=== PATIENT | male | born 1935 | race Caucasian/White ===

== ENCOUNTER → 2016-12-29 | Day surgery (SDC) | payer MEDICARE, OTHER ==
[~2016-12-29] VITALS: Ht 180.3 cm; Wt 75.0 kg
[~2016-12-29] MED LIST: ALTACE10 MG PO; ALTACE2.5 MG PO; ASPIR 8181 MG PO; COLACE100 MG PO; DITROPAN XL15 MG PO; LEVOTHROID (S100 MCG PO; TOVIAZ8 MG PO; TRIMETHOPRIM100 MG PO; VESICARE10 MG PO
--- NOTE | ~2016-12-29 | OR ---
PATIENT'S NAME: STEVIE CARDENAS [facility] AGE: 81 Y [address] ROOM: [place] [address] [place] [facility] [place] DATE: 12/29/2016 OR/Procedure Report DISCHARGE DATE: FAMILY PHYSICIAN: Maggi Michaels MD ATTENDING PHYSICIAN: Roly Leon SURGEON: Roly Leon MD [employer] OPERATOR: DATE OF PROCEDURE: 12/29/2016 PREOPERATIVE DIAGNOSES: 1. Carcinoma of the prostate. 2. Urethral stricture. 3. Suprapubic catheter. POSTOPERATIVE DIAGNOSES: 1. Carcinoma of the prostate. 2. Urethral stricture. 3. Suprapubic catheter. OPERATION: Suprapubic catheter change. DESCRIPTION OF PROCEDURE: The patient was seen in the outpatient department. He was given IV sedation by the Anesthesia Department and then the suprapubic catheter was removed. A new 24-[place] silicone Rodriguez was inserted without difficulty. It irrigated easily and clearly and he remained in the outpatient department until he is recovered from the anesthesia sedation and then dismissed. ROLY LEON MD EKL/modl /[id number] d: 12/29/16 0704 t: 12/30/16 0454, OPERATIVE SUMMARY
--- NOTE | ~2016-12-29 | HP ---
PATIENT'S NAME: STEVIE CARDENAS [facility] AGE: 81 Y [address] ROOM: [place] [id number] LOCATION: [facility] ADMIT DATE: 12/29/2016 History & Physical DISCHARGE DATE: FAMILY PHYSICIAN: PHYSICIAN, UNKNOWN ATTENDING PHYSICIAN: Roly Leon DATE OF SERVICE: HISTORY OF PRESENT ILLNESS: This is a 81-year-old male, who was found to have adenocarcinoma of the prostate in 2004 and subsequently treated with radioactive seeds. He then developed complications from the radiation with the severe urethral stricture, which required frequent dilatations. His stricture became worse. He then had a laser vaporization of the prostate, but he continued to have voiding problems and recurrent stricture formation and became very difficult to dilate the stricture; therefore, suprapubic catheter was inserted. In 2008, a suprapubic catheter was placed. He had a lot of bladder spasms with his suprapubic catheter and is very difficult to change his catheter because of pain and discomfort. He becomes very combative and difficult to handle when his suprapubic catheters changed. Therefore, it has been changed under IV sedation every three months. He is seen now for suprapubic catheter change under IV sedation. PAST MEDICAL HISTORY: ILLNESSES: 1. Hypothyroidism. 2. Diabetes mellitus. 3. Adenocarcinoma of the prostate. OPERATIONS: 1. Appendectomy. 2. Inguinal herniorrhaphy. 3. Knee arthroscopy. 4. As above. ALLERGIES: LATEX. PHYSICAL EXAMINATION: PATIENT'S NAME: STEVIE CARDENAS [facility] AGE: 81 Y [address] ROOM: [place] [id number] LOCATION: [facility] ADMIT DATE: 12/29/2016 History & Physical DISCHARGE DATE: FAMILY PHYSICIAN: PHYSICIAN, UNKNOWN ATTENDING PHYSICIAN: Roly Leon GENERAL: A well-developed and well-nourished male. CHEST: Clear. HEART: Normal sinus rhythm. ABDOMEN: Soft with no palpable masses. Suprapubic catheter is in place. : Normal penis. Testicles are normal. Prostate is flat and benign. RECTAL: Negative. IMPRESSION: 1. Adenocarcinoma of the prostate. 2. Urethral stricture. 3. Suprapubic cystostomy. PLAN: As above. ROLY K MD VIOLETTE LEON/georges /[id number] D: [id number] T: [id number] HISTORY & PHYSICAL
[2016-12-29 06:18] LABS: BASOPHIL % 0.6 %; EOSINOPHIL # 0.1 K/uL (0.0-0.5); EOSINOPHIL % 2.4 %; HEMOGLOBIN 14.5 g/dL (11.0-16.0); IMMATURE GRANULOCYTE % 0.4 %; LYMPHOCYTE # 1.3 K/uL (0.8-4.0); LYMPHOCYTE % 24.8 %; MCH 30.6 pg (27.0-34.0); MCHC 33.7 gm/dL (32.0-36.5); MCV 90.7 fl (83.0-98.0); MONOCYTE # 0.6 K/uL (0.0-1.0); MONOCYTE % 11.1 %; MPV 10.1 fl (9.4-12.4); NEUTROPHIL # (ANC) 3.1 K/uL (1.4-9.0); NEUTROPHIL % 60.7 %; NRBC % 0 /100WBC (0-0.00); PLATELET COUNT 140 K/uL (150-450); RBC 4.74 M/uL (3.50-5.50); RDW-CV 12.2 % (11.9-14.6)
[2016-12-29 06:36] LABS: ALBUMIN 3.7 gm/dL (3.5-5.0); ANION GAP 10.2 (10.0-19.0); CALCIUM 8.6 mg/dL (8.5-10.5); CREATININE 1.2 mg/dL (0.6-1.3); POTASSIUM 4.2 mMol/L (3.7-5.1); TOTAL PROTEIN 6.9 g/dL (6.0-8.4)
== END | disposition disaster alternative care site (69) ==
LOC: GPOC 12-23 15:00 → GSDC 05:23 → GPOC 05:30
PROVIDERS: Urology
PROC: 0T2DX0Z Change Drainage Device in Urethra, External Approach (ICD-10-PCS; principal; 2016-12-29)
DX: Z46.6 Encounter for fitting and adjustment of urinary device (principal); C61 Malignant neoplasm of prostate; N35.9 Urethral stricture, unspecified; E03.9 Hypothyroidism, unspecified; E11.9 Type 2 diabetes mellitus without complications; Z90.49 Acquired absence of other specified parts of digestive tract; Z98.890 Other specified postprocedural states; Z91.040 Latex allergy status
CPT/HCPCS: J2001; J7030

== ENCOUNTER → 2017-04-13 | Day surgery (SDC) | payer MEDICARE, OTHER ==
[~2017-04-13] VITALS: Ht 177.8 cm; Wt 75.0 kg
--- NOTE | ~2017-04-13 | OR ---
PATIENT'S NAME: AALN CARDENAS [facility] AGE: 82 Y [address] ROOM: [place] [address] [place] [facility] [place]: 04/13/2017 OR/Procedure Report DISCHARGE DATE: FAMILY PHYSICIAN: Maggi Michaels MD ATTENDING PHYSICIAN: Roly Leon SURGEON: Roly Leon MD PATIENT SERVICES REPRESENTATIVE: DATE OF PROCEDURE: 04/13/2017 PREOPERATIVE DIAGNOSES: 1. Urinary retention. 2. Suprapubic catheter. 3. Difficult catheter change. POSTOPERATIVE DIAGNOSES: 1. Urinary retention. 2. Suprapubic catheter. 3. Difficult catheter change. PROCEDURE: Suprapubic catheter change. PROCEDURE IN DETAIL: Alan was seen in the outpatient department. He was given IV sedation by the anesthesia personnel and then the suprapubic catheter was removed and a new suprapubic catheter #24 all silicone catheter was inserted. It irrigated easily and clearly and he was then dismissed. ROLY LEON MD EKL/modl /[id number] d: t: 04/15/17908, OPERATIVE SUMMARY
--- NOTE | ~2017-04-13 | HP ---
PATIENT'S NAME: STEVIE CARDENAS [facility] AGE: 82 Y [address] ROOM: [place] [address] LOCATION: [facility] [place] ADMIT DATE: 04/13/2017 History & Physical DISCHARGE DATE: FAMILY PHYSICIAN: Maggi Michaels MD ATTENDING PHYSICIAN: Roly Leon DATE OF SERVICE: HISTORY OF PRESENT ILLNESS: This is an 82-year-old male who was found to have adenocarcinoma of the prostate in 2004. Subsequently, he was treated with radiation seeds. He then developed complications from radiation with severe stricture disease requiring frequent dilatations. As his stricture became worse, he had more and more problems and then had a vaporization of the prostatic area again with stricture formation. In 2008, a suprapubic catheter was placed. He has had problems with the suprapubic catheter with spasms and is very difficult to change his suprapubic pain in the office because of pain and discomfort. He becomes very combative and it is difficult for the nurses to handle him with the catheter change. Therefore, it has been changed under IV sedation every 3 months with good results. PAST MEDICAL HISTORY: Illnesses: 1. Hypothyroidism. 2. Diabetes mellitus. 3. Adenocarcinoma of the prostate. PAST SURGICAL HISTORY: Operations: 1. Appendectomy. 2. Inguinal herniorrhaphy. 3. Knee arthroscopy. ALLERGIES: LATEX. PHYSICAL EXAMINATION: GENERAL: A well-developed, well-nourished male. CHEST: Clear. HEART: Normal sinus rhythm. ABDOMEN: Soft with no palpable masses. He has a suprapubic catheter in place. PATIENT'S NAME: STEVIE CARDENAS [facility] AGE: 82 Y [address] ROOM: [place] [address] LOCATION: [facility] [place] ADMIT DATE: 04/13/2017 History & Physical DISCHARGE DATE: FAMILY PHYSICIAN: Maggi Michaels MD ATTENDING PHYSICIAN: Roly Leon : Normal penis. Testicles are normal. Prostate is flat and benign. Rectal negative. IMPRESSION: 1. Adenocarcinoma of the prostate. 2. Urethra, bladder neck strictures. 3. Suprapubic tube. PLAN: As above. ROLY K MD VIOLETTE LEON/glorial /[id number] D: [id number] T: [id number] HISTORY & PHYSICAL
== END | disposition disaster alternative care site (69) ==
LOC: GPOC 04-12 14:00 → GSDC 05:18
PROC: 0T2BX0Z Change Drainage Device in Bladder, External Approach (ICD-10-PCS; principal; 2017-04-13)
DX: R33.9 Retention of urine, unspecified (principal); E03.9 Hypothyroidism, unspecified; E11.9 Type 2 diabetes mellitus without complications; Z91.040 Latex allergy status; Z85.46 Personal history of malignant neoplasm of prostate; Z90.49 Acquired absence of other specified parts of digestive tract; Z98.890 Other specified postprocedural states
CPT/HCPCS: J2001; J7030